=== PATIENT | female | born 1950 | race Caucasian/White ===

== ENCOUNTER → 2022-09-26 | Outpatient (CLI) | payer MEDICARE, BC ==
[~2022-09-26] MED LIST: ACET-1379 PO; B-122500 PO; D 101000 PO; DILT30TA PO; ELIQ5TAB PO; GNP650TA8 PO; LEVE750T5 PO; OPTI0.5D5 OP; OZEM2INJ INJ; PRAM1TAB7 PO; SIMV20TA22 PO; SPIR50TA4 PO; TORS20TA2 PO
== END ==
LOC: M LABSMTC 09:42
PROVIDERS: ATTEND Anesthesiology
DX: Z01.812 Encounter for preprocedural laboratory examination (principal); Z11.52 Encounter for screening for COVID-19

== ENCOUNTER 2022-10-01 14:39 | Day surgery (SDC) | payer MEDICARE, BC ==
[~2022-10-01] VITALS: Ht 165.1 cm; Wt 77.1 kg
[2022-10-01] MEDS ORDERED: LR 1,000 ML IV SCH (16:00)
[2022-10-01] MEDS ORDERED: LIDOCAINE 2% 100MG/5ML SDV (FOR ANES.) As Ordered ONE (16:31)
[2022-10-01] MEDS ORDERED: fentaNYL 100 MCG/2 ML INJECTION As Ordered ONE (16:32)
[2022-10-01] MEDS ORDERED: propofoL 500 MG/50 ML VIAL As Ordered ONE (16:32)
[2022-10-01] MEDS ORDERED: MIDAZOLAM INJ 2MG/2ML VIAL (J2250 PER 1MG) As Ordered ONE (16:32)
[2022-10-01] MEDS ORDERED: CETACAINE SPRAY 5GM As Ordered ONE (16:44)
[2022-10-01] MEDS ORDERED: LIDOCAINE VISCOUS 2% SOLN 15ML UDC As Ordered ONE (16:44)
[2022-10-01 19:08] VITALS: BP 105/53
== END 2022-10-01 20:00 | disposition home or self-care (01) ==
LOC: M SDC 14:39
PROVIDERS: ATTEND Internal Medicine Cardiovascular Disease
DX: I70.0 Atherosclerosis of aorta (principal); I11.9 Hypertensive heart disease without heart failure; E11.9 Type 2 diabetes mellitus without complications; I48.0 Paroxysmal atrial fibrillation; G40.909 Epilepsy, unspecified, not intractable, without status epilepticus; G45.4 Transient global amnesia; Z88.7 Allergy status to serum and vaccine; Z79.899 Other long term (current) drug therapy; Z79.01 Long term (current) use of anticoagulants; Z79.84 Long term (current) use of oral hypoglycemic drugs
CPT/HCPCS: 93312; 93320; 93325; J2250; J3010